=== PATIENT | female | born 1975 | race Hispanic/Latino ===

== ENCOUNTER 2021-09-06 20:57 | Observation (INO) | payer OTHER ==
[~2021-09-06] VITALS: Ht 154.9 cm; Wt 62.1 kg
[2021-09-06 21:28] LABS: BASOPHILS % (AUTO) 0.4 % (0.0-5.0); EOSINOPHILS % (AUTO) 2.3 % (0.0-8.0); HEMATOCRIT 40.7 % (36-48); LYMPHOCYTES % (AUTO) 27.9 % (21.0-51.0); MEAN CORPUSCULAR HEMOGLOBIN 30.9 pg (27.0-33.0); MEAN CORPUSCULAR HGB CONC 33.9 g/dL (32.0-36.0); MEAN CORPUSCULAR VOLUME 91.3 fL (79-99); MONOCYTES % (AUTO) 8.4 % (3.0-13.0); NEUTROPHILS % (AUTO) 60.7 % (40.0-77.0); PLATELET COUNT (AUTO) 291 K/uL (130-400); RED BLOOD CELL COUNT(AUTO) 4.46 MIL/uL (4.00-5.50); RED CELL DISTRIBUTION WIDTH 13.2 % (11.0-15.5)
[2021-09-06 21:40] LABS: CREATININE 1.4 mg/dL (0.5-1.5); POTASSIUM 3.3 mmol/L (3.5-5.1)
[2021-09-06 21:40] LABS: APPEARANCE,URINE Clear (CLEAR); BILIRUBIN,URINE Negative (NEGATIVE); COLOR,URINE Yellow (YELLOW); GLUCOSE, URINE (UA) 500 mg/dL (NEGATIVE); KETONES,URINE Negative (NEGATIVE); LEUKOCYTE ESTERASE ,URINE Negative (NEGATIVE); NITRATE,URINE Negative (NEGATIVE); OCCULT BLOOD,URINE Negative (NEGATIVE); PH,URINE 5.5 (5.0-8.0); PROTEIN,URINE Trace mg/dL (NEGATIVE); UROBILINOGEN,URINE 0.2 mg/dL (0.2-1.0)
[2021-09-06 21:45] LABS: ALBUMIN 4.1 g/dL (3.5-5.0); BILIRUBIN,TOTAL 0.4 mg/dL (0.2-1.0); TOTAL PROTEIN, SERUM 8.5 g/dL (6.0-8.3)
[2021-09-06 22:07] LABS: BACTERIA,URINE Rare /HPF (None Seen); RBC,URINE None Seen /HPF (0-1); SQUAMOUS EPITHELIAL CELL,UR 0-2 /HPF (0-2); WBC,URINE None Seen /HPF (0-1)
[2021-09-06] MEDS ORDERED: 0.9%NACL 1000ML 1,000 ML IV ONE (22:30)
[2021-09-06] MEDS: MAGNESIUM 2GM PREMIX 50ML 50 ML IV SCH (23:05)
[2021-09-07] MEDS ORDERED: FAMOTIDINE 20MG VIAL IV ONE
[2021-09-07] MEDS ORDERED: ACETAMINOPHEN 325 MG TAB PO PRN ×2 (00:30)
[2021-09-07] MEDS ORDERED: MORPHINE 2 MG SYG IV PRN (00:30)
[2021-09-07] MEDS ORDERED: POTASSIUM CHLORIDE 10MEQ/100ML 100 ML IV PRN (00:30)
[2021-09-07] MEDS ORDERED: METF-444 PO (00:30)
[2021-09-07] MEDS ORDERED: LIDOCAINE HCL-MPF 1% 2ML VIAL IV PRN (00:30)
[2021-09-07] MEDS ORDERED: POTASSIUM CHLORIDE 10% ELIXIR 20 MEQ/15 ML UDCUP PO PRN (00:30)
[2021-09-07] MEDS ORDERED: MAGNESIUM 2GM PREMIX 50ML 50 ML IV PRN (00:30)
[2021-09-07] MEDS ORDERED: ONDANSETRON 4MG INJ IV PRN (00:30)
[2021-09-07] MEDS: 0.9%NACL 1000ML 1,000 ML IV SCH ×2 (00:39→10:11)
[2021-09-07 00:48] LABS: HEMOGLOBIN A1C 7.6 % (4.0-6.0)
[2021-09-07 04:25] VITALS: BP 108/68
[2021-09-07] MEDS ORDERED: GLIM2TAB30 PO (04:33)
[2021-09-07] MEDS: MAGNESIUM 2GM PREMIX 50ML 50 ML IV SCH (04:51)
[2021-09-07] MEDS: KCL 20 MEQ ERTAB PO PRN ×2 (04:52→09:07)
[2021-09-07 04:55] LABS: BASOPHILS % (AUTO) 0.5 % (0.0-5.0); EOSINOPHILS % (AUTO) 2.3 % (0.0-8.0); HEMATOCRIT 35.4 % (36-48); MEAN CORPUSCULAR HEMOGLOBIN 29.8 pg (27.0-33.0); MEAN CORPUSCULAR HGB CONC 32.2 g/dL (32.0-36.0); MEAN CORPUSCULAR VOLUME 92.7 fL (79-99); MONOCYTES % (AUTO) 8.4 % (3.0-13.0); NEUTROPHILS % (AUTO) 60.6 % (40.0-77.0); PLATELET COUNT (AUTO) 250 K/uL (130-400); RED BLOOD CELL COUNT(AUTO) 3.82 MIL/uL (4.00-5.50); RED CELL DISTRIBUTION WIDTH 13.4 % (11.0-15.5); WHITE BLOOD COUNT (AUTO) 8.9 K/uL (4.8-10.8)
[2021-09-07 05:13] LABS: ALBUMIN 3.3 g/dL (3.5-5.0); BILIRUBIN,TOTAL 0.3 mg/dL (0.2-1.0); CREATININE 1.1 mg/dL (0.5-1.5); POTASSIUM 3.2 mmol/L (3.5-5.1)
[2021-09-07] MEDS ORDERED: INSULIN HUMULIN R 100 UNIT/ML 3ML ONE (05:22)
[2021-09-07] MEDS: INSULIN HUMULIN R 100 UNIT/ML 3ML SQ SCH ×2 (05:24→11:03)
[2021-09-07 06:06] LABS: ERYTHROCYTE SEDIMENTATION RATE 18 MM/HR (0-20)
[2021-09-07 07:49] VITALS: BP 101/65
[2021-09-07] MEDS ORDERED: FAMOTIDINE 20MG VIAL IV SCH (09:00)
[2021-09-07] MEDS ORDERED: LACTULOSE 20 GM/30 ML UDCUP PO SCH (10:30)
[2021-09-07] MEDS ORDERED: KCL 20 MEQ ERTAB PO SCH (10:30)
[2021-09-07 11:23] VITALS: BP 113/67
[2021-09-07] MEDS ORDERED: LACT10SO9 PO (11:30)
[2021-09-07] MEDS ORDERED: POTASSIUM CHLORIDE 10% ELIXIR 20 MEQ/15 ML UDCUP PO SCH (11:30)
[2021-09-07] MEDS ORDERED: ATOR10TA69 PO (11:30)
[2021-09-07] MEDS ORDERED: LISI2.5T13 PO (11:30)
[2021-09-07] MEDS ORDERED: METF-446 PO (11:30)
== END 2021-09-07 12:42 | disposition home or self-care (01) ==
LOC: EDH 20:57 → EDHIP 20:58 → 4CH 09-07 04:21
PROVIDERS: ADMIT Hospitalist; ATTEND Hospitalist
DX: E83.42 Hypomagnesemia (principal); E11.65 Type 2 diabetes mellitus with hyperglycemia; E83.41 Hypermagnesemia; E78.00 Pure hypercholesterolemia, unspecified; F17.210 Nicotine dependence, cigarettes, uncomplicated; F12.90 Cannabis use, unspecified, uncomplicated; G89.29 Other chronic pain; K80.20 Calculus of gallbladder without cholecystitis without obstruction; M47.815 Spondylosis without myelopathy or radiculopathy, thoracolumbar region; R53.81 Other malaise; R10.9 Unspecified abdominal pain; Z79.84 Long term (current) use of oral hypoglycemic drugs; Z90.710 Acquired absence of both cervix and uterus; Z79.899 Other long term (current) drug therapy; Z98.890 Other specified postprocedural states; Z79.4 Long term (current) use of insulin
CPT/HCPCS: 36415 ×2; 74176; 80053 ×2; 81001; 82550; 82948 ×3; 83036; 83690; 83735 ×3; 84484; 85025 ×2; 85651; 93005; 96361 ×2; 96365; 96366; 96372; 96375 ×2; 96376; 99285; G0378 ×12; J1815; J3475 ×2; J3490 ×2; J7030 ×3

== ENCOUNTER 2022-07-27 14:46 | Emergency (ER) | payer SELFPAY ==
[~2022-07-27] VITALS: Ht 154.9 cm; Wt 54.4 kg
[~2022-07-27 14:46] MED LIST: ATOR10TA69 PO; GLIM2TAB30 PO; LACT10SO9 PO; LISI2.5T13 PO; METF-446 PO
[2022-07-27 15:03] VITALS: BP 134/84
[2022-07-27] MEDS ORDERED: AMOX1TAB15 PO (15:06)
[2022-07-27 16:12] LABS: APPEARANCE,URINE CLEAR (CLEAR); BILIRUBIN,URINE NEGATIVE (NEGATIVE); COLOR,URINE LIGHT-YELLOW (YELLOW); GLUCOSE, URINE (UA) NEGATIVE (NEGATIVE); KETONES,URINE NEGATIVE (NEGATIVE); LEUKOCYTE ESTERASE ,URINE 25 Leu/uL (NEGATIVE); NITRATE,URINE NEGATIVE (NEGATIVE); OCCULT BLOOD,URINE NEGATIVE (NEGATIVE); PROTEIN,URINE NEGATIVE (NEGATIVE); UROBILINOGEN,URINE 0.2 mg/dL (0.2-1.0)
[2022-07-27 16:14] LABS: AMPHET/METH SCREEN,URINE NEGATIVE (NEGATIVE); BARBITURATE SCREEN, URINE NEGATIVE (NEGATIVE); BENZODIAZEPINES SCREEN,URINE NEGATIVE (NEGATIVE); CANNABINOID SCREEN,URINE NEGATIVE (NEGATIVE); COCAINE SCREEN,URINE NEGATIVE (NEGATIVE); MUCUS,URINE RARE LPF (None Seen); OPIATE SCREEN,URINE NEGATIVE (NEGATIVE); PHENCYCLIDINE SCREEN,URINE NEGATIVE (NEGATIVE); RBC,URINE 0-1 /HPF (0-1); SQUAMOUS EPITHELIAL CELL,UR RARE /HPF (0-2)
== END 2022-07-27 16:06 | disposition home or self-care (01) ==
LOC: EDH 14:46
DX: H66.92 Otitis media, unspecified, left ear (principal); I10 Essential (primary) hypertension; E11.9 Type 2 diabetes mellitus without complications; Z79.899 Other long term (current) drug therapy; Z79.84 Long term (current) use of oral hypoglycemic drugs; Z90.710 Acquired absence of both cervix and uterus; Z98.890 Other specified postprocedural states
CPT/HCPCS: 80305; 81001

== ENCOUNTER 2022-09-23 20:10 | Inpatient (IN) | payer OTHER ==
[~2022-09-23] VITALS: Ht 152.4 cm; Wt 60.0 kg
[~2022-09-23 20:10] MED LIST changes: +AMOX1TAB15 PO
[2022-09-23 20:54] LABS: BASOPHILS % (AUTO) 0.3 % (0.0-5.0); EOSINOPHILS % (AUTO) 2.3 % (0.0-8.0); HEMATOCRIT 34.4 % (36-48); MEAN CORPUSCULAR HGB CONC 32.6 g/dL (32.0-36.0); MEAN CORPUSCULAR VOLUME 89.1 fL (79-99); MONOCYTES % (AUTO) 6.7 % (3.0-13.0); NEUTROPHILS % (AUTO) 68.3 % (40.0-77.0); PLATELET COUNT (AUTO) 492 K/uL (130-400); RED BLOOD CELL COUNT(AUTO) 3.86 MIL/uL (4.00-5.50); RED CELL DISTRIBUTION WIDTH 13.5 % (11.0-15.5); WHITE BLOOD COUNT (AUTO) 9.1 K/uL (4.8-10.8)
[2022-09-23 21:06] LABS: INR 0.93 (0.85-1.15); PROTHROMBIN TIME 9.9 SEC (9.6-11.6)
[2022-09-23 21:08] LABS: PARTIAL THROMBOPLASTIN TIME 30.9 SEC (26.3-35.5)
[2022-09-23 21:27] LABS: ALBUMIN 3.3 g/dL (3.5-5.0); CREATININE 3.5 mg/dL (0.5-1.5); TOTAL PROTEIN, SERUM 8.3 g/dL (6.0-8.3)
[2022-09-23] MEDS ORDERED: POTASSIUM BICARB/CIT AC 25 MEQ TABLET.EFF PO ONE (22:00)
[2022-09-23] MEDS ORDERED: ONDANSETRON 4MG INJ IV PRN (22:30)
[2022-09-23] MEDS ORDERED: ACETAMINOPHEN 325 MG TAB PO PRN ×2 (22:30)
[2022-09-23] MEDS ORDERED: POTASSIUM CHLORIDE 10% ELIXIR 20 MEQ/15 ML UDCUP PO PRN (22:30)
[2022-09-23] MEDS ORDERED: HYDROMORPHONE 1 MG INJ IV PRN (22:30)
[2022-09-24] MEDS: CEFTRIAXONE 1G VIAL IVPB SCH ×2 (00:47→23:24)
[2022-09-24] MEDS: DOXYCYCLINE 100MG+NS 250ML IV SCH ×3 (00:47→23:24)
[2022-09-24] MEDS: HYDROCODONE/ACETAMINOPHEN 5/325 MG TAB PO PRN ×2 (00:49→09:16)
[2022-09-24] MEDS: HEPARIN 5,000 UNIT VIAL SQ SCH ×4 (00:49→23:25)
[2022-09-24 06:13] LABS: BASOPHILS % (AUTO) 0.4 % (0.0-5.0); EOSINOPHILS % (AUTO) 3.2 % (0.0-8.0); LYMPHOCYTES % (AUTO) 35.5 % (21.0-51.0); MEAN CORPUSCULAR HEMOGLOBIN 29.1 pg (27.0-33.0); MEAN CORPUSCULAR HGB CONC 32.6 g/dL (32.0-36.0); MEAN CORPUSCULAR VOLUME 89.3 fL (79-99); MONOCYTES % (AUTO) 6.3 % (3.0-13.0); NEUTROPHILS % (AUTO) 54.2 % (40.0-77.0); PLATELET COUNT (AUTO) 417 K/uL (130-400); RED BLOOD CELL COUNT(AUTO) 3.47 MIL/uL (4.00-5.50); RED CELL DISTRIBUTION WIDTH 13.6 % (11.0-15.5); WHITE BLOOD COUNT (AUTO) 8.2 K/uL (4.8-10.8)
[2022-09-24 06:26] LABS: % IRON SATURATION 15.2 % (22-44); CREATININE 2.8 mg/dL (0.5-1.5); PHOSPHORUS 1.8 mg/dL (2.5-4.9); POTASSIUM 3.5 mmol/L (3.5-5.1)
[2022-09-24 06:27] LABS: HEMOGLOBIN A1C 8.9 % (4.0-6.0)
[2022-09-24] MEDS: INSULIN HUMULIN R 100 UNIT/ML 3ML SQ SCH ×4 (07:30→20:22)
[2022-09-24] MEDS: PANTOPRAZOLE 40 MG TAB DR PO SCH (08:08)
[2022-09-24 08:20] VITALS: BP 97/56
[2022-09-24] MEDS ORDERED: FURO40TA5 PO (11:18)
[2022-09-24] MEDS ORDERED: METF-445 PO (11:18)
[2022-09-24 11:49] VITALS: BP 95/61
[2022-09-24 16:00] VITALS: BP 109/67
[2022-09-24] MEDS: 0.9%NACL 1000ML 1,000 ML IV SCH ×2 (17:49→23:10)
[2022-09-24] MEDS: HYDROMORPHONE 0.5 MG SYG (0.5MG/0.5ML) IV PRN ×2 (17:49→23:24)
[2022-09-24] MEDS ORDERED: NICOTINE 21 MG/ 24 HR PATCH TD STA (19:42)
[2022-09-24 20:00] VITALS: BP 102/61
[2022-09-24] MEDS: ATORVASTATIN 40 MG TABLET PO SCH (20:11)
[2022-09-25] VITALS (7 sets, daily range): BP systolic 97–116; BP diastolic 59–76
[2022-09-25 05:09] LABS: HEMATOCRIT 23.9 % (36-48); MEAN CORPUSCULAR VOLUME 93.7 fL (79-99); PLATELET COUNT (AUTO) 327 K/uL (130-400); RED BLOOD CELL COUNT(AUTO) 2.55 MIL/uL (4.00-5.50); RED CELL DISTRIBUTION WIDTH 13.4 % (11.0-15.5); WHITE BLOOD COUNT (AUTO) 6.5 K/uL (4.8-10.8)
[2022-09-25 05:24] LABS: ALANINE AMINOTRANSFERASE 6 U/L (12-78); ALBUMIN 1.6 g/dL (3.5-5.0); ASPARTATE AMINOTRANSFERASE 7 U/L (10-37); CARBON DIOXIDE 24 mmol/L (21-32); CHLORIDE 116 mmol/L (101-111); CREATININE 1.1 mg/dL (0.5-1.5); GLOMERULAR FILTR. RATE CALC 62 mL/min (>90); GLUCOSE,RANDOM 142 mg/dL (70-105); PHOSPHORUS 1.3 mg/dL (2.5-4.9); SODIUM SERUM 146 mmol/L (136-145); TOTAL PROTEIN, SERUM 4.3 g/dL (6.0-8.3); UREA NITROGEN, BLOOD 24 mg/dL (7-18); URIC ACID 4.4 mg/dL (2.6-7.2)
[2022-09-25 05:27] LABS: POTASSIUM 2.4 mmol/L (3.5-5.1)
[2022-09-25] MEDS: INSULIN HUMULIN R 100 UNIT/ML 3ML SQ SCH ×4 (05:31→20:57)
[2022-09-25] MEDS: POTASSIUM CHLORIDE 10MEQ/100ML 100 ML IV PRN ×2 (05:37→08:36)
[2022-09-25] MEDS: HYDROCODONE/ACETAMINOPHEN 5/325 MG TAB PO PRN ×2 (05:48→20:46)
[2022-09-25] MEDS: DOXYCYCLINE 100MG+NS 250ML IV SCH ×2 (08:35→20:58)
[2022-09-25] MEDS: MAGNESIUM 2GM PREMIX 50ML 50 ML IV PRN ×3 (08:36→16:38)
[2022-09-25] MEDS: PANTOPRAZOLE 40 MG TAB DR PO SCH (08:36)
[2022-09-25] MEDS: ASPIRIN 81 MG EC TAB PO SCH (08:36)
[2022-09-25] MEDS: Vitamin B Complex/Vit C/Folic Acid PO SCH (08:37)
[2022-09-25] MEDS: HYDROMORPHONE 0.5 MG SYG (0.5MG/0.5ML) IV PRN ×2 (08:37→17:06)
[2022-09-25] MEDS ORDERED: NICOTINE 21 MG/ 24 HR PATCH TD SCH ×2 (09:00→21:00)
[2022-09-25 10:37] LABS: APPEARANCE,URINE CLEAR (CLEAR); BILIRUBIN,URINE NEGATIVE (NEGATIVE); COLOR,URINE COLORLESS (YELLOW); GLUCOSE, URINE (UA) 70 mg/dL (NEGATIVE); KETONES,URINE NEGATIVE (NEGATIVE); LEUKOCYTE ESTERASE ,URINE 75 Leu/uL (NEGATIVE); NITRATE,URINE NEGATIVE (NEGATIVE); OCCULT BLOOD,URINE NEGATIVE (NEGATIVE); PH,URINE 6.5 (5.0-8.0); PROTEIN,URINE NEGATIVE (NEGATIVE); UROBILINOGEN,URINE 0.2 mg/dL (0.2-1.0)
[2022-09-25 10:39] LABS: CREATININE,URINE RANDOM 22 mg/dL (30-135); SODIUM,URINE RANDOM 75 mmol/l (40-220)
[2022-09-25 10:41] LABS: RBC,URINE 0-1 /HPF (0-1); SQUAMOUS EPITHELIAL CELL,UR RARE /HPF (0-2)
[2022-09-25] MEDS ORDERED: IOHEXOL-350 50ML VIAL IV ONE (13:43)
[2022-09-25] MEDS ORDERED: IOHEXOL-350 75 ML VIAL IV ONE (13:43)
[2022-09-25 14:50] LABS: BASOPHILS % (AUTO) 0.8 % (0.0-5.0); EOSINOPHILS % (AUTO) 4.4 % (0.0-8.0); HEMATOCRIT 31.8 % (36-48); LYMPHOCYTES % (AUTO) 34.1 % (21.0-51.0); MEAN CORPUSCULAR HEMOGLOBIN 28.9 pg (27.0-33.0); MEAN CORPUSCULAR HGB CONC 30.5 g/dL (32.0-36.0); MEAN CORPUSCULAR VOLUME 94.6 fL (79-99); MONOCYTES % (AUTO) 6.3 % (3.0-13.0); NEUTROPHILS % (AUTO) 53.3 % (40.0-77.0); PLATELET COUNT (AUTO) 410 K/uL (130-400); RED BLOOD CELL COUNT(AUTO) 3.36 MIL/uL (4.00-5.50); RED CELL DISTRIBUTION WIDTH 13.6 % (11.0-15.5); WHITE BLOOD COUNT (AUTO) 6.2 K/uL (4.8-10.8)
[2022-09-25 15:01] LABS: CREATININE 1.3 mg/dL (0.5-1.5); POTASSIUM 3.9 mmol/L (3.5-5.1)
[2022-09-25 15:08] LABS: ALBUMIN 2.8 g/dL (3.5-5.0); MAGNESIUM 1.3 mg/dL (1.80-2.40); TOTAL PROTEIN, SERUM 6.8 g/dL (6.0-8.3)
[2022-09-25] MEDS: HEPARIN 5,000 UNIT VIAL SQ SCH ×2 (15:15→20:58)
[2022-09-25] MEDS: ATORVASTATIN 40 MG TABLET PO SCH (20:46)
[2022-09-26] MEDS: HYDROMORPHONE 0.5 MG SYG (0.5MG/0.5ML) IV PRN ×2 (00:19→17:28)
[2022-09-26] MEDS: CEFTRIAXONE 1G VIAL IVPB SCH (04:05)
[2022-09-26 04:30] VITALS: BP 86/51
[2022-09-26 04:58] LABS: BASOPHILS % (AUTO) 0.5 % (0.0-5.0); EOSINOPHILS % (AUTO) 5.1 % (0.0-8.0); HEMATOCRIT 27.1 % (36-48); LYMPHOCYTES % (AUTO) 41.9 % (21.0-51.0); MEAN CORPUSCULAR HEMOGLOBIN 28.8 pg (27.0-33.0); MEAN CORPUSCULAR HGB CONC 31.4 g/dL (32.0-36.0); MEAN CORPUSCULAR VOLUME 91.9 fL (79-99); MONOCYTES % (AUTO) 6.1 % (3.0-13.0); NEUTROPHILS % (AUTO) 45.2 % (40.0-77.0); PLATELET COUNT (AUTO) 383 K/uL (130-400); RED BLOOD CELL COUNT(AUTO) 2.95 MIL/uL (4.00-5.50); RED CELL DISTRIBUTION WIDTH 13.7 % (11.0-15.5); WHITE BLOOD COUNT (AUTO) 8.4 K/uL (4.8-10.8)
[2022-09-26 05:00] VITALS: BP 96/60
[2022-09-26 05:19] LABS: ALBUMIN 2.4 g/dL (3.5-5.0); CREATININE 1.1 mg/dL (0.5-1.5); MAGNESIUM 1.4 mg/dL (1.80-2.40); POTASSIUM 3.1 mmol/L (3.5-5.1); TOTAL PROTEIN, SERUM 5.9 g/dL (6.0-8.3)
[2022-09-26] MEDS: KCL 20 MEQ ERTAB PO PRN ×2 (06:38→10:06)
[2022-09-26] MEDS: HEPARIN 5,000 UNIT VIAL SQ SCH ×2 (06:40→14:57)
[2022-09-26] MEDS: INSULIN HUMULIN R 100 UNIT/ML 3ML SQ SCH ×3 (06:41→16:30)
[2022-09-26] MEDS: MAGNESIUM 2GM PREMIX 50ML 50 ML IV PRN (06:42)
[2022-09-26 08:00] VITALS: BP 123/73
[2022-09-26] MEDS: ASPIRIN 81 MG EC TAB PO SCH (10:06)
[2022-09-26] MEDS: Vitamin B Complex/Vit C/Folic Acid PO SCH (10:06)
[2022-09-26] MEDS: PANTOPRAZOLE 40 MG TAB DR PO SCH (10:06)
[2022-09-26] MEDS: DOXYCYCLINE 100MG+NS 250ML IV SCH (10:07)
[2022-09-26] MEDS: HYDROCODONE/ACETAMINOPHEN 5/325 MG TAB PO PRN ×2 (10:31→14:53)
[2022-09-26] MEDS ORDERED: POTASSIUM CHLORIDE 20 MEQ/100 ML BAG IV SCH (11:30)
[2022-09-26] MEDS ORDERED: MAGNESIUM 2GM PREMIX 50ML 50 ML IV SCH (11:30)
[2022-09-26 12:00] VITALS: BP 108/67
[2022-09-26] MEDS ORDERED: NACL 0.9% IV SCH (12:00)
[2022-09-26] MEDS ORDERED: POTASSIUM CHLORIDE IV SCH (12:00)
[2022-09-26 15:42] VITALS: BP 102/65
[2022-09-26 16:31] LABS: ALBUMIN 2.5 g/dL (3.5-5.0); CREATININE 1.1 mg/dL (0.5-1.5); MAGNESIUM 1.7 mg/dL (1.80-2.40); POTASSIUM 3.7 mmol/L (3.5-5.1); TOTAL PROTEIN, SERUM 6.4 g/dL (6.0-8.3)
[2022-09-26] MEDS ORDERED: KCL 20 MEQ ERTAB PO SCH (17:30)
== END 2022-09-26 20:00 | disposition home or self-care (01) | DRG 194 ==
LOC: EDH 20:10 → EDHIP 20:11 → 4CH 09-24 08:20
PROVIDERS: ADMIT Hospitalist; ATTEND Hospitalist
DX: J18.9 Pneumonia, unspecified organism (principal); D68.59 Other primary thrombophilia; N17.9 Acute kidney failure, unspecified; I12.9 Hypertensive chronic kidney disease with stage 1 through stage 4 chronic kidney disease, or unspecified chronic kidney disease; E11.40 Type 2 diabetes mellitus with diabetic neuropathy, unspecified; E11.65 Type 2 diabetes mellitus with hyperglycemia; E11.22 Type 2 diabetes mellitus with diabetic chronic kidney disease; N18.9 Chronic kidney disease, unspecified; D64.9 Anemia, unspecified; E78.00 Pure hypercholesterolemia, unspecified; E87.6 Hypokalemia; F17.210 Nicotine dependence, cigarettes, uncomplicated; Z90.710 Acquired absence of both cervix and uterus
CPT/HCPCS: 36415; 71045; 75635; 76770; 78582; 80048; 80053; 81001; 82570; 82948; 83036; 83540; 83550; 83735; 83935; 84100; 84300; 84550; 85025; 85027; 85378; 85610; 85730; 87088; 93925; A9540; A9558; G0378; J0696; J1170; J1644; J1815; J3475; J3480; J3490; J7050; Q9967

== ENCOUNTER 2022-10-01 07:05 | Emergency (ER) | payer OTHER ==
[~2022-10-01] VITALS: Ht 162.6 cm; Wt 63.5 kg
[~2022-10-01 07:05] MED LIST changes: -AMOX1TAB15 PO; -ATOR10TA69 PO; -GLIM2TAB30 PO; -LACT10SO9 PO; -LISI2.5T13 PO; +METF-445 PO; -METF-446 PO
[2022-10-01 07:42] LABS: APPEARANCE,URINE CLEAR (CLEAR); BILIRUBIN,URINE NEGATIVE (NEGATIVE); COLOR,URINE COLORLESS (YELLOW); GLUCOSE, URINE (UA) TRACE mg/dL (NEGATIVE); KETONES,URINE NEGATIVE (NEGATIVE); LEUKOCYTE ESTERASE ,URINE NEGATIVE Leu/uL (NEGATIVE); NITRATE,URINE NEGATIVE (NEGATIVE); OCCULT BLOOD,URINE NEGATIVE (NEGATIVE); PROTEIN,URINE NEGATIVE (NEGATIVE); UROBILINOGEN,URINE 0.2 mg/dL (0.2-1.0)
[2022-10-01 07:46] LABS: BACTERIA,URINE RARE /HPF (None Seen); RBC,URINE 0-1 /HPF (0-1); SQUAMOUS EPITHELIAL CELL,UR RARE /HPF (0-2); WBC,URINE 0-1 /HPF (0-1)
[2022-10-01 07:49] LABS: BASOPHILS % (AUTO) 0.2 % (0.0-5.0); EOSINOPHILS % (AUTO) 2.3 % (0.0-8.0); HEMATOCRIT 28.6 % (36-48); LYMPHOCYTES % (AUTO) 12.9 % (21.0-51.0); MEAN CORPUSCULAR HEMOGLOBIN 29.4 pg (27.0-33.0); MEAN CORPUSCULAR HGB CONC 32.2 g/dL (32.0-36.0); MEAN CORPUSCULAR VOLUME 91.4 fL (79-99); MONOCYTES % (AUTO) 6.1 % (3.0-13.0); NEUTROPHILS % (AUTO) 77.9 % (40.0-77.0); PLATELET COUNT (AUTO) 539 K/uL (130-400); RED BLOOD CELL COUNT(AUTO) 3.13 MIL/uL (4.00-5.50); RED CELL DISTRIBUTION WIDTH 14.6 % (11.0-15.5)
[2022-10-01 07:54] LABS: AMPHET/METH SCREEN,URINE NEGATIVE (NEGATIVE); BARBITURATE SCREEN, URINE NEGATIVE (NEGATIVE); BENZODIAZEPINES SCREEN,URINE NEGATIVE (NEGATIVE); CANNABINOID SCREEN,URINE NEGATIVE (NEGATIVE); COCAINE SCREEN,URINE POSITIVE (NEGATIVE); OPIATE SCREEN,URINE NEGATIVE (NEGATIVE); PHENCYCLIDINE SCREEN,URINE NEGATIVE (NEGATIVE)
[2022-10-01] MEDS ORDERED: ACETAMINOPHEN 500 MG TABLET PO ONE (08:00)
[2022-10-01 08:08] LABS: ALBUMIN 3.2 g/dL (3.5-5.0); CREATININE 0.9 mg/dL (0.5-1.5); POTASSIUM 3.9 mmol/L (3.5-5.1); TOTAL PROTEIN, SERUM 7.8 g/dL (6.0-8.3)
[2022-10-01 09:32] VITALS: BP 119/76
[2022-10-01] MEDS ORDERED: FUROSEMIDE 20MG VIAL IV SCH (10:00)
== END 2022-10-01 10:16 | disposition home or self-care (01) ==
LOC: EDH 07:05
DX: R56.9 Unspecified convulsions (principal); F14.10 Cocaine abuse, uncomplicated; D63.8 Anemia in other chronic diseases classified elsewhere; E11.9 Type 2 diabetes mellitus without complications; E78.00 Pure hypercholesterolemia, unspecified; Z79.84 Long term (current) use of oral hypoglycemic drugs; Z79.899 Other long term (current) drug therapy
CPT/HCPCS: 36415; 70450; 80053; 80305; 81001; 85025

== ENCOUNTER 2024-03-31 17:29 | Emergency (ER) | payer BC ==
[~2024-03-31] VITALS: Ht 152.4 cm; Wt 61.2 kg
[~2024-03-31 17:29] MED LIST changes: +IBUP-2070 PO; +PRED20TA3 PO
--- NOTE | 2024-03-31 17:52 | ERN ---
ED Note History of Present Illness Stated Complaint: BREAST PROBLEM Chief Complaint: Breast Problem Time Seen by MD: 17:39 Time Seen by Midlevel: 17:39 Dictation: Patient is a 48-year-old female with a history of diabetes, hysterectomy, C- section who presents to the emergency department with complaints of heart lumps on her chest onset 4 hours ago. Patient denies any fever, chest pain, recent trauma. Allergies: Coded Allergies: No Known Allergies (Unverified Allergy, Unknown, 09/06/21) Home Meds Active Scripts Prednisone (Prednisone) 20 Mg Tablet, 2 TAB PO DAILY for 5 Days, #10 TAB 0 Refills Prov:BALAJI KRISHNALUPE INSPECTOR AND CLIPPER 10/01/23 Ibuprofen (Ibuprofen) 600 Mg Tablet, 600 MG PO Q6H PRN for PAIN, #30 TAB Prov:KRISHNAPEDRO INSPECTOR AND CLIPPER 10/01/23 Reported Medications Metformin HCl (Metformin HCl) 850 Mg Tablet, 850 MG PO TID, TAB 09/24/22 Past Medical History Past Medical History: No Pertinent History, Diabetes-Type II, High Cholesterol, Renal Disese Surgical History: Other Surgical History Other: NECK SURG Family History: Negative Social History: Negative, Lives with family History: Not Applicable RN Note Reviewed/Agreed w/PFSH: Yes Review of System Dictation Constitutional: Negative for fever,chills, and weight loss Eyes: Negative for injury, pain,redness, and discharge ENT: Negative for injury,pain or swelling Cardiovascular: Negative for chest pain, palpitations, and edema Respiratory: Negative for shortness of breath, cough, and wheezing, Abdomen/GI: Negative for abdominal pain, nausea, vomiting, diarrhea, and constipation Back: Negative for injury and pain : Negative for injury, bleeding and discharge MS/Extremity: Negative for injury and deformity Skin: Negative for rash, and discoloration. Positive for breast lumps Neuro: Negative for headache, weakness, numbness, tingling, and seizure Psych: Negative for suicide ideation, homicidal ideation, and hallucinations Initial Vital Sign VS Vital Signs Date Time Temp Pulse Resp B/P (MAP) Pulse Ox O2 Delivery O2 Flow Rate FiO2 03/31/24 17:31 97.5 92 16 120/79 100 Room Air 0 03/31/24 17:31 21 Physical Exam Dictation Vital Signs reviewed General Appearance: Alert, oriented x 3, no acute distress, well developed, nourished. Head and Face: non-traumatic. Eyes: PERRL, pink conjunctivas, eyelid no trauma, anterior chamber with arcus senilis. Ears: Pinnas intact and no signs of trauma or erythema ear canals clear and no discharge TM no erythema Nose: No discharge, no bleeding. Oropharynx: Mouth normal, tongue pink. pharynx clear,no erythema, tonsils no exudates, no abscesses noted, mucous membrane moist Neck: Supple, non-tender, no thyromegaly, no masses, no JVD, no bruits Breast:harden to bilateral upper breast, no nipple drainage, no erythema, firm nodules Chest:No tenderness, no crepitus, no paradoxical movement, no retractions Lungs:Clear, well-ventilated, symmetric, no rales, no wheezing, no rhonchi, no stridor, good breath sounds bilaterally Heart: Regular rate, regular rhythm, no murmur, no gallops Vascular: no peripheral edema, Abdomen: Soft, positive bowel sounds, nondistended, no guarding, nontender, no rebound, no masses no hepatomegaly, no splenomegaly, no Noguera's sign, no hernias. Rectal: Deferred Genital: Deferred Neurological: Normal speech, motor function intact, sensory function intact Musculoskeletal: Neck nontender, full range of motion, back nontender, full range of motion, Extremities: nontender, full range of motion Skin: Color pink, dry, no turgor, no rash, no lacerations, no abrasions, no contusions. Lymphatic: Deferred Results (Laboratory/Radiology) Labs Reviewed?: Yes ED Course ED Course Orders Procedure Category Date Status Time Ketorolac 60mg/2ml PHA 03/31/24 Complete (Toradol 60mg/2ml) 19:00 Current Medications Medications (Trade) Dose Ordered Sig/Ivan Route PRN Reason Start Time Stop Time Status Last Admin Dose Admin Ketorolac Tromethamine (toRADol 60MG/ 2ML) 60 mg ONCE ONCE IM 03/31/24 19:00 03/31/24 19:01 DC 03/31/24 19:34 Vital Signs Date Time Temp Pulse Resp B/P (MAP) Pulse Ox O2 Delivery O2 Flow Rate FiO2 03/31/24 19:28 98.2 78 16 118/78 98 Room Air* 0 21 03/31/24 17:31 97.5 87 16 120/79 98 Room Air* 0 21 03/31/24 17:31 97.5 92 16 120/79 100 Room Air 0 Medical Decision Making MDM Patient is a 48-year-old female with a history of diabetes, hysterectomy, C- section who presents to the emergency department with complaints of heart lumps on her chest onset 4 hours ago. Patient denies any fever, chest pain, recent trauma. Breast firm, multiple lumps to bilateral upper breast, no erythema. Patient instructed to follow up with PCP for possible mammogram. Patient in no acute distress. Differential diagnosis: Cellulitis, breast abscess, breast cyst Need for hospitalization: Patient does not meet criteria for hospitalization. There are no social concerns with this patient. DX & DISP Disposition: Discharge Departure Impression: Primary Impression: Lump of breast, left Additional Impression: Lump of breast, right Condition: Stable Additional Instructions: Please follow up with PCP for possible mammogram. FOLLOW-UP WITH PRIMARY CARE PROVIDER IN 1 TO 2 DAYS. TAKE MEDICATIONS DIRECTED HERE IN THE EMERGENCY ROOM. OKAY TO CONTINUE HOME MEDICATIONS UNLESS OTHERWISE DISCUSSED DURING YOUR VISIT IN THE EMERGENCY ROOM TODAY. RETURN TO YOUR NEAREST EMERGENCY ROOM IF SYMPTOMS WORSEN OR IF THERE IS NO IMPROVEMENT. CALL 911 IF YOU NEED IMMEDIATE ASSISTANCE. TAKE TYLENOL OR MOTRIN [id number] NEEDED AND IF NO CONTRAINDICATIONS ARE PRESENT. INCREASE ORAL HYDRATION. A WOUND CULTURE OR URINE CULTURE WAS ORDERED HERE IN THE EMERGENCY ROOM DEPARTMENT PLEASE FOLLOW-UP WITH PRIMARY CARE PROVIDER AND ADVISE THEM TO GET REPEAT PORTS FROM OUR FACILITY. IF YOU HAD ANY IRMA WRAP/SPLINTS THAT WERE APPLIED HERE, PLEASE DO NOT REMOVE THEM UNTIL YOU SEE YOUR PRIMARY CARE OR SPECIALTY. Referrals: SELF,REFERRAL (PCP) I performed this substantive portion of this visit. I have reviewed and personally made and approve the management plan that is documented in the note by myself or the MARK. I acknowledge full responsibility for the patient's management plan. BRITTANY ESPARZA Mar 31, 2024 17:52 CRISTO SOTELO MD Apr 02, 2024 13:37
[2024-03-31 19:28] VITALS: BP 118/78; PULSE 78; RESP 16; TEMP 98.3; O2SAT 98
[2024-03-31] MEDS: ketOROlac 60 MG VIAL (30MG/ML) IM ONE (19:34)
== END 2024-03-31 19:43 | disposition home or self-care (01) ==
LOC: EDH 17:29
DX: N63.10 Unspecified lump in the right breast, unspecified quadrant (principal); N63.20 Unspecified lump in the left breast, unspecified quadrant; Z79.52 Long term (current) use of systemic steroids; Z79.84 Long term (current) use of oral hypoglycemic drugs
CPT/HCPCS: 99284; 96372; J1885

== ENCOUNTER 2024-10-20 17:32 | Emergency (ER) | payer BC ==
[~2024-10-20] VITALS: Ht 152.4 cm; Wt 58.5 kg
[2024-10-20] MEDS: LIDOCAINE 5% TOPICAL PATCH TP STA (19:26)
[2024-10-20] MEDS: ORPHENADRINE 60MG/2ML IM STA (19:27)
[2024-10-20] MEDS: ketOROlac 15MG/ML VIAL (15MG/ML) IM STA (19:27)
[2024-10-20] MEDS: TETRACAINE HCL 0.5% 4 ML OPHTH SOLN OP STA (19:27)
--- NOTE | 2024-10-20 19:28 | NUR ---
PT BROUGHT INTO FAST TRACK AT THIS TIME FROM [facility]
--- NOTE | 2024-10-20 20:01 | ERN ---
ED Note History of Present Illness Stated Complaint: SEVERE LEFT SHOULDER AND FINGER PAIN,EYE DISCOMFOR Chief Complaint: Shoulder Injury/Pain Time Seen by MD: 17:47 Time Seen by Midlevel: 17:50 Dictation: 49-year-old female coming in with multiple complaints of left shoulder pain, left eye pain and her trigger finger on her right hand 3rd digit. Patient states her shoulder has been hurting for the last three months after she suffered a fall after having some edibles. States she has not be evaluated in the pain has gotten worsen. States she is able to move her arm around but does have pain when doing so. Her left eye began to hurt after she tried to put on some contact lenses. States it began tearing, no discharge. Allergies: Coded Allergies: No Known Allergies (Unverified Allergy, Unknown, 09/06/21) Home Meds Active Scripts Prednisone (Prednisone) 20 Mg Tablet, 2 TAB PO DAILY for 5 Days, #10 TAB 0 Refills Prov:PEDRO KRISHNA WINDOWS DEPLOYMENT TECHNICIAN 10/01/23 Ibuprofen (Ibuprofen) 600 Mg Tablet, 600 MG PO Q6H PRN for PAIN, #30 TAB Prov:PEDRO KRISHNA WINDOWS DEPLOYMENT TECHNICIAN 10/01/23 Reported Medications Metformin HCl (Metformin HCl) 850 Mg Tablet, 850 MG PO TID, TAB 09/24/22 Past Medical History Past Medical History: Diabetes-Type II, High Cholesterol, Renal Disese Surgical History: Other Surgical History Other: NECK SURG Family History: Negative Social History: Negative, Lives with family History: Not Applicable Review of System Dictation Constitutional: Negative for fever,chills, and weight loss Eyes: Negative for injury, pain,redness, and discharge, complaining of watery left eye and pain ENT: Negative for injury,pain or swelling Cardiovascular: Negative for chest pain, palpitations, and edema Respiratory: Negative for shortness of breath, cough, and wheezing, Abdomen/GI: Negative for abdominal pain, nausea, vomiting, diarrhea, and constipation Back: Negative for injury and pain : Negative for injury, bleeding and discharge MS/Extremity: Negative for injury and deformity, complaining of left shoulder pain and right and 3rd digit pain Skin: Negative for rash, and discoloration Neuro: Negative for headache, weakness, numbness, tingling, and seizure Psych: Negative for suicide ideation, homicidal ideation, and hallucinations Review of Systems: was completed Initial Vital Sign VS Vital Signs Date Time Temp Pulse Resp B/P (MAP) Pulse Ox O2 Delivery O2 Flow Rate FiO2 10/20/24 18:09 97.9 95 20 125/90 99 Room Air 0 10/20/24 19:55 21 Physical Exam Dictation General: awake, alert, NAD Head/Face: Normocephalic, atraumatic Eyes: PERRL, EOMI, vision at baseline ENT: oral cavity clear, TMs clear, no signs of infection Neck: Trachea midline, supple, no nuchal rigidity Cardiovascular: RRR, normal S1/S2, No MRGs, no JVD Respiratory: CTAB, no respiratory distress, No rales or wheezes Abdomen: Soft, non-tender, non-distended, normal bowel sounds, no guarding or rebound. Skin: Warm, dry, normal turgor, no rash MS/Extremity: Pulses equal, no cyanosis, neurovascular intact, FROM Neuro: COAx4, GCS 15, strength 5/5, CN 2-12 intact, normal cerebellar exam, normal gait, Psych: Normal behavior, mood, and affect normal ED Course ED Course Orders Procedure Category Date Status Time Shoulder Comp 2+Vws Lt RAD 10/20/24 Resulted 18:25 Ketorolac PHA 10/20/24 Complete Tromethamine 15mg/Ml 18:25 Orphenadrine Citrate PHA 10/20/24 Complete (Norflex) 18:25 Lidocaine (Lidoderm PHA 10/20/24 Complete Patch 5%) 18:25 Sling RACHEL 10/20/24 In Process 18:27 Tetracaine Hcl PHA 10/20/24 Complete (Pontocaine 0.5% 18:51 Fluorescein Sodium PHA 10/20/24 Complete (Qogfk-O-Lgwxs At) 20:05 Current Medications Medications (Trade) Dose Ordered Sig/Ivan Route PRN Reason Start Time Stop Time Status Last Admin Dose Admin Fluorescein Sodium (Gamsq-F-Nbvbx At) 1 strip STK-MED ONCE .ROUTE 10/20/24 20:05 10/20/24 20:05 DC Ketorolac Tromethamine (toRADol) 15 mg ONCE STAT IM 10/20/24 18:25 10/20/24 18:34 DC 10/20/24 19:27 Lidocaine (Lidoderm Patch 5%) 1 patch ONCE STAT TP 10/20/24 18:25 10/20/24 18:34 DC 10/20/24 19:26 Orphenadrine Citrate (Norflex) 60 mg ONCE STAT IM 10/20/24 18:25 10/20/24 18:34 DC 10/20/24 19:27 Tetracaine HCl (Pontocaine 0.5% Ophth Soln) 1 OR 2 DROPS ONCE STAT OP 10/20/24 18:51 10/20/24 18:56 DC 10/20/24 19:27 Vital Signs Date Time Temp Pulse Resp B/P (MAP) Pulse Ox O2 Delivery O2 Flow Rate FiO2 10/20/24 19:55 97.9 80 18 125/87 98 Room Air* 0 21 10/20/24 18:09 97.9 95 20 125/90 99 Room Air 0 Medical Decision Making MDM MDM: 49-year-old female coming in with multiple complaints of left shoulder pain, left eye pain and her trigger finger on her right hand 3rd digit. Patient states her shoulder has been hurting for the last three months after she suffered a fall after having some edibles. States she has not be evaluated in the pain has gotten worsen. States she is able to move her arm around but does have pain when doing so. Her left eye began to hurt after she tried to put on some contact lenses. Denies any vision changes. States it began tearing, no discharge. On with lamp exam I looks within normal limits, no signs of ulceration or abrasions. X-ray of the shoulder shows no acute findings. Patient educated to follow up with the automobile detailer outpatient and to follow up with PCP regarding her shoulder pain and trigger finger. Patient was given prescription for lidocaine patch and ketorolac to take at home. Educated patient to return to the hospital if he has worsening symptoms. Differential diagnosis: Shoulder dislocation, shoulder contusion, arthritis, corneal abrasion Rationale: Tests considered and ordered secondary to shared decision making include: Previous outside records reviewed: Old ER visits. Risk of complication and/or morbidity or mortality of patient management: None Medications-Per medication reconciliation Need for hospitalization: Patient does not meet criteria for hospitalization. Need for emergency major/minor surgery: No There are no social concerns with this patient. Prescription drug management Prescriptions will include symptomatic care Patient's prior external medical records from other ER visits were reviewed by me as indicated. Prior testing and results from previous visits were reviewed. Prior tests were taken into account with medical decision making and resource utilization, independent historian/historians were used to obtain complete medical history. I independently interpreted the test that were performed, results were reviewed by me and considered findings on radiology if ordered. Medical management and examination interpretation discussions were had by me with other qualified healthcare professionals as indicated for the patient's care. DX & DISP Disposition: Discharge Departure Impression: Primary Impression: Trigger ring finger of right hand Additional Impressions: Eye irritation, Shoulder pain, left Condition: Stable Scripts Ketorolac Tromethamine (Ketorolac Tromethamine) 10 Mg Tablet 1 TAB PO Q6HPRN PRN for pain for 3 Days, #12 TAB 0 Refills Prov: TAMIKO LINDSEY NP 10/20/24 Lidocaine (Lidocaine) 4 % Adh..patch 1 PATCH TP DAILY for 10 Days, #10 PATCH 0 Refills Prov: TAMIKO LINDSEY MANAGER TRADE MARKETING 10/20/24 Additional Instructions: With the automobile detailer for further evaluation of your left eye, follow up with PCP. Return to the hospital for worsening symptoms. Referrals: LEENA NEGRETE MD (PCP) Time of Disposition: 20:24 I have reviewed the case, and I agree with, Diagnosis and Plan TAMIKO LIDNSEY NP Oct 20, 2024 20:01
[2024-10-20] MEDS ORDERED: FLUORESCEIN SODIUM 1 STRIP STRIP ONE (20:05)
--- NOTE | 2024-10-20 20:11 | HMCIMG ---
SHOULDER COMP 2+VWS LT HISTORY: Status post fall COMPARISON: None TECHNIQUE: 2 images of the left shoulder were obtained. FINDINGS: There is no acute displaced fracture or dislocation. Degenerative changes are seen. IMPRESSION: 1. Findings as described above.
[2024-10-20] MEDS ORDERED: LIDO1ADH82 TP (20:25)
[2024-10-20] MEDS ORDERED: KETO10TA2 PO (20:25)
--- NOTE | 2024-10-20 20:37 | NUR ---
VISUAL ACUITY BOTH 20/50 LEFT 20/70 RIGHT 20/50
[2024-10-20 20:38] VITALS: BP 132/85; PULSE 84; RESP 18; TEMP 97.9; O2SAT 98
--- NOTE | 2024-10-20 20:41 | NUR ---
L ARM SLING APPLIED, HAS GOOD PMS BEFORE AND POST APPLICATION OF SLING. CAP REFILL <2 SECONDS.
== END 2024-10-20 20:42 | disposition home or self-care (01) ==
LOC: EDH 17:34
DX: M65.341 Trigger finger, right ring finger (principal); M25.512 Pain in left shoulder; H57.9 Unspecified disorder of eye and adnexa; E11.9 Type 2 diabetes mellitus without complications; E78.00 Pure hypercholesterolemia, unspecified; Z79.52 Long term (current) use of systemic steroids; Z79.84 Long term (current) use of oral hypoglycemic drugs; W18.39XA Other fall on same level, initial encounter; Y93.89 Activity, other specified; Y92.89 Other specified places as the place of occurrence of the external cause; Y99.8 Other external cause status
CPT/HCPCS: 99284; 73030; 96372 ×2; J1885; J2360

== ENCOUNTER 2025-03-14 18:27 | Emergency (ER) | payer BC ==
[~2025-03-14] VITALS: Ht 152.4 cm; Wt 61.2 kg
[~2025-03-14 18:27] MED LIST changes: +IBUP-1492 PO; -IBUP-2070 PO; +KETO10TA2 PO; +LIDO1ADH82 TP
--- NOTE | 2025-03-14 20:06 | HMCIMG ---
EXAM: CR left Shoulder, 2 View. CLINICAL HISTORY: r/o calcific tendinitis COMPARISON: None provided. FINDINGS: BONES: No acute fracture or aggressive appearing osseous lesion. JOINTS: No dislocation. The joint spaces are normal. SOFT TISSUES: The soft tissues are unremarkable. IMPRESSION: No acute abnormality evident on examination of the right shoulder. No acute fracture or dislocation. /[place]
--- NOTE | 2025-03-14 20:21 | ERN ---
General Chief Complaint: Arm Swelling/Redness Stated Complaint: LEFT ARM PAIN X ONE MONTH Time Seen by MD: 18:28 Time Seen by Midlevel: 18:28 Source: patient History of Present Illness Initial Comments 49-year-old female presents to the emergency department for evaluation of left shoulder pain that has progressively worsened over the last month. Your injury to the area. She was seen back in October for the same complaint where she had a shoulder x-ray. Allergies: Coded Allergies: No Known Allergies (Unverified Allergy, Unknown, 09/06/21) Home Meds Active Scripts Ketorolac Tromethamine (Ketorolac Tromethamine) 10 Mg Tablet, 1 TAB PO Q6HPRN PRN for pain for 3 Days, #12 TAB 0 Refills Prov:TAMIKO LINDSEY DOOR CLOSER 10/20/24 Lidocaine (Lidocaine) 4 % Adh..patch, 1 PATCH TP DAILY for 10 Days, #10 PATCH 0 Refills Prov:TAMIKO LINDSEY DOOR CLOSER 10/20/24 Prednisone (Prednisone) 20 Mg Tablet, 2 TAB PO DAILY for 5 Days, #10 TAB 0 Refills Prov:PEDRO KRISHNA CABLE SPLICER APPRENTICE 10/01/23 Ibuprofen (Ibuprofen) 600 Mg Tablet, 600 MG PO Q6H PRN for PAIN, #30 TAB Prov:PEDRO KRISHNA CABLE SPLICER APPRENTICE 10/01/23 Reported Medications Metformin HCl (Metformin HCl) 850 Mg Tablet, 850 MG PO TID, TAB 09/24/22 Past Medical History Past Medical History: Diabetes-Type II, High Cholesterol, Renal Disese, Seizure Past Surgical History: Hysterectomy, Other, Surgical History Other: NECK SURG Family History Family History: Negative Social History Social History: Negative, Lives with family Female( History) History: Not Applicable ROS Dictation CONSTITUTIONAL: Negative except for HPI HEAD/FACE: Negative except for HPI EENT: Negative except for HPI RESPIRATORY: Negative except for HPI GASTROINTESTINAL/ABDOMINAL: Negative except for HPI GENITOURINARY: Negative except for HPI MUSCULOSKELETAL: Negative except for HPI INTEGUMENTARY: Negative except for HPI NEUROLOGICAL/PSYCH: Negative except for HPI HEMATOLOGIC/LYMPHATIC: Negative except for HPI All Systems Negative, Except as noted above. 13 point review of systems assessed and all negative except for above. Physical Exam Physical Exam Dictation Vital Signs reviewed General Appearance: Alert, oriented x 3, no acute distress, well developed, nourished. Head and Face: non-traumatic. Eyes: PERRL, pink conjunctivas, eyelid no trauma, anterior chamber with arcus senilis. Ears: Pinnas intact and no signs of trauma or erythema ear canals clear and no discharge TM no erythema Nose: No discharge, no bleeding. Oropharynx: Mouth normal, tongue pink, pharynx clear,no erythema, tonsils no exudates, no abscesses noted, mucous membrane moist Neck: Supple, non-tender, no thyromegaly, no masses, no JVD, no bruits Breast:Deferred Chest:No tenderness, no crepitus, no paradoxical movement, no retractions Lungs:Clear, well-ventilated, symmetric, no rales, no wheezing, no rhonchi, no stridor, good breath sounds bilaterally Heart: Regular rate, regular rhythm, no murmur, no gallops Vascular: no peripheral edema, Abdomen: Soft, positive bowel sounds, nondistended, no guarding, nontender, no rebound, no masses no hepatomegaly, no splenomegaly, no Noguera's sign, no hernias. Rectal: Deferred Genital: Deferred Neurological: Normal speech, motor function intact, sensory function intact Musculoskeletal: Neck nontender, full range of motion, back nontender, full range of motion, Extremities: There was some tenderness over the left shoulder with restricted range motion secondary to pain. Radial pulses intact, sensation is Skin: Color pink, dry, no turgor, no rash, no lacerations, no abrasions, no contusions. Lymphatic: Deferred MDM MDM: 49-year-old female presents to the emergency department for evaluation of left shoulder pain that has progressively worsened over the last month. Your injury to the area. She was seen back in October for the same complaint where she had a shoulder x-ray. On physical examination the patient has some mild tenderness overlying the left shoulder with some restricted range motion secondary to pain. There are no obvious signs of external trauma or deformity. She has a good radial pulse with sensation intact. In x-ray was performed which does reveal a slight subluxation of the left humeral head when compared to the previous x-ray performed on October of 2024. Per the radiologist there was no acute fracture or dislocation. The patient was put on a sling and was given pain medication in the emergency department. Patient will need to follow up outpatient with orthopedic surgery for further evaluation. Patient agrees with this plan and is comfortable for discharge Differential diagnosis: Subluxation, fracture, dislocation There are no social concerns with this patient. Prescription drug management Prescriptions will include: None Medical management and examination interpretation discussions were had by me with other qualified healthcare professionals as indicated for the patient's care. ED Course Orders Procedure Category Date Status Time Shoulder Comp 2+Vws Lt RAD 03/14/25 Resulted 18:35 Ketorolac PHA 03/14/25 Complete Tromethamine 30mg/Ml 19:00 Hydrocodone/Apap PHA 03/14/25 Complete 5/325 ([place] 5/325mg) 19:00 Sling RACHEL 03/14/25 In Process 19:02 Current Medications Medications (Trade) Dose Ordered Sig/Ivan Route PRN Reason Start Time Stop Time Status Last Admin Dose Admin Acetaminophen/ Hydrocodone Bitart (NORco 5/325MG) 1 tab ONCE ONCE PO 03/14/25 19:00 03/14/25 19:01 DC Ketorolac Tromethamine (toRADol) 30 mg ONCE ONCE IM 03/14/25 19:00 03/14/25 19:01 DC Vital Signs Date Time Temp Pulse Resp B/P (MAP) Pulse Ox O2 Delivery O2 Flow Rate FiO2 03/14/25 18:28 98.2 100 18 132/78 100 Room Air 0 DX & DISP Disposition: Discharge Departure Impression: Primary Impression: Subluxation of shoulder joint Condition: Stable Scripts Ketorolac Tromethamine (Ketorolac Tromethamine) 10 Mg Tablet 1 TAB PO BID for pain for 5 Days, #10 TAB 0 Refills Prov: HILDA ALCALA PAC 03/14/25 Additional Instructions: Your left shoulder x-ray shows what appears to be a chronic subluxation. You were placed on a sling in the emergency department for comfort. Follow up with orthopedic surgeon outpatient for further evaluation. Return to the ER for any new or worsening symptoms Referrals: LEENA NEGRETE MD (PCP) SONIA ASTUDILLO MD Time of Disposition: 20:43 I have reviewed the case, and I agree with, Diagnosis and Plan I performed the substantive portion of the visit. I have reviewed and personally made and approve the management plan that is documented in the note by myself or the MARK. I acknowledge for responsibility for the patient's management plan. HILDA ALCALA PAC Mar 14, 2025 20:21
[2025-03-14] MEDS ORDERED: KETO10TA2 PO (20:44)
[2025-03-14] MEDS: HYDROcodone/APAP 5/325 1 TAB TABLET PO ONE (21:17)
[2025-03-14 21:37] VITALS: BP 128/76; PULSE 92; RESP 16; TEMP 98.1; O2SAT 99
== END 2025-03-14 21:38 | disposition home or self-care (01) ==
LOC: EDH 18:27
DX: S43.002A Unspecified subluxation of left shoulder joint, initial encounter (principal); E11.9 Type 2 diabetes mellitus without complications; E78.00 Pure hypercholesterolemia, unspecified; Z79.52 Long term (current) use of systemic steroids; Z79.84 Long term (current) use of oral hypoglycemic drugs; Z90.710 Acquired absence of both cervix and uterus; X58.XXXA Exposure to other specified factors, initial encounter; Y93.89 Activity, other specified; Y92.89 Other specified places as the place of occurrence of the external cause; Y99.8 Other external cause status
CPT/HCPCS: 99284; 73030; 96372; J1885